=== PATIENT | male | born 1960 | race Caucasian/White ===

== ENCOUNTER 2022-12-26 16:43 | Emergency (ER) | payer OTHER ==
[~2022-12-26] VITALS: Ht 182.9 cm; Wt 83.9 kg
[2022-12-26 17:11] VITALS: BP 146/87
--- NOTE | 2022-12-26 20:09 | NUR ---
PATIENT DC'D HOME. PATIENT REFUSING CRUTCHES. INSTRUCTIONS PROVIDED. PATIENT VERBALIZED UNDERSTANDING.
== END 2022-12-26 20:09 | disposition home or self-care (01) ==
LOC: MED 16:43
DX: M25.572 Pain in left ankle and joints of left foot (principal)
CPT/HCPCS: 73610; 99283